=== PATIENT | male | born 1980 | race Caucasian/White ===

== ENCOUNTER 2021-11-18 01:36 | Emergency (ER) | payer OTHER ==
[2021-11-18] MEDS: Sodium Chloride 0.9% 1,000 ML IV ONE (02:00)
[2021-11-18] MEDS: Ondansetron 4 MG/2 ML SDV IVPUSH ONE (02:12)
[2021-11-18] MEDS: Ondansetron 4 MG Tab.DIS PO ONE (03:20)
== END 2021-11-18 03:25 | disposition home or self-care (01) ==
LOC: KA.ED 01:36
DX: R11.2 Nausea with vomiting, unspecified (principal); R19.7 Diarrhea, unspecified; Z91.040 Latex allergy status; Z79.899 Other long term (current) drug therapy
CPT/HCPCS: 96374; 99283; 99283-25; A9270-GY; J2405; J7030